=== PATIENT | female | born 1980 | race Caucasian/White ===

== ENCOUNTER 2016-08-04 21:15 | Emergency (ER) | payer MEDICARE, MEDICAID ==
[~2016-08-04] VITALS: Ht 160 cm; Wt 100.2 kg
[2016-08-04] MEDS ORDERED: ZOLO50TA PO (21:51)
[2016-08-04] MEDS ORDERED: ENAL20TA PO (21:51)
[2016-08-04] MEDS ORDERED: FLON1SPR (21:51)
[2016-08-04] MEDS ORDERED: CALCTAB75 PO (21:51)
[2016-08-04] MEDS ORDERED: MULTLIQ7 PO (21:51)
[2016-08-04] MEDS ORDERED: MEDR1VL IM (21:51)
[2016-08-04] MEDS ORDERED: OMEP40CA2 PO (21:51)
[2016-08-04] MEDS ORDERED: ALLE180T33 PO (21:51)
[2016-08-04 23:01] LABS: MEAN CORPUSCULAR HEMOGLOBIN 30.8 pg (27.0-33.0); MEAN CORPUSCULAR HGB CONC 34.5 g/dl (32.0-36.5); MEAN CORPUSCULAR VOLUME 89.5 fl (80.0-96.0); RED CELL DISTRIBUTION WIDTH 11.8 % (11.5-14.5); WHITE BLOOD COUNT 9.3 K/mm3 (4.0-10.0)
[2016-08-04 23:11] LABS: CONTROL LINE HCG INT CTR LINE PRESENT
[2016-08-04 23:20] LABS: METHADONE URINE NEGATIVE (NEGATIVE)
[2016-08-04 23:28] LABS: ALBUMIN 3.3 GM/DL (3.2-5.2); ALBUMIN/GLOBULIN RATIO 0.85 (1.00-1.93); ALKALINE PHOSPHATASE 108 U/L (45-117); ALT/SGPT 23 U/L (12-78); ANION GAP 8 MEQ/L (8-16); AST/SGOT 12 U/L (15-37); BILIRUBIN,DIRECT < 0.1 MG/DL (0.0-0.2); BILIRUBIN,TOTAL 0.2 MG/DL (0.2-1.0); BLOOD UREA NITROGEN 17 MG/DL (7-18); CALCIUM LEVEL 8.6 MG/DL (8.5-10.1); CARBON DIOXIDE LEVEL 26 MEQ/L (21-32); CHLORIDE LEVEL 104 MEQ/L (98-107); CREATININE FOR GFR 0.65 MG/DL (0.55-1.02); GLOMERULAR FILTRATION RATE > 60.0 (>60); GLUCOSE, FASTING 102 MG/DL (70-105); POTASSIUM SERUM 4.2 MEQ/L (3.5-5.1); SODIUM LEVEL 138 MEQ/L (136-145); TOTAL PROTEIN 7.2 GM/DL (6.4-8.2)
[2016-08-05 02:16] VITALS: BP 128/70
== END 2016-08-05 02:17 | disposition home or self-care (01) ==
LOC: M ED 21:59
DX: F33.9 Major depressive disorder, recurrent, unspecified (principal); F43.20 Adjustment disorder, unspecified; K21.9 Gastro-esophageal reflux disease without esophagitis; J30.9 Allergic rhinitis, unspecified; F12.20 Cannabis dependence, uncomplicated; Z79.899 Other long term (current) drug therapy
CPT/HCPCS: 36415; 80048; 80076; 80306; 84443; 84703; 85027; 99284; G0480

== ENCOUNTER → 2020-04-09 | Outpatient (REF) | payer MEDICARE, MEDICAID ==
[~2020-04-09] MED LIST: ALLE180T33 PO; CALCTAB75 PO; ENAL20TA11 PO; FLON1SPR; MEDR1VL IM; MULTLIQ7 PO; OMEP40CA97 PO; ZOLO50TA PO
[2020-04-09 14:27] LABS: BACTERIA, URINE AUTO NEGATIVE (NEGATIVE); MUCUS, URINE SMALL (NEGATIVE); RBC, URINE AUTO 0 /HPF (0-3); SQUAMOUS EPITHELIAL CELL UR AU 0 /HPF (0-6); WBC, URINE AUTO 0 /HPF (0-3)
== END ==
LOC: M SMT 13:45
PROVIDERS: ATTEND Specialist
DX: R30.0 Dysuria (principal)

== ENCOUNTER → 2020-08-08 | Outpatient (REF) | payer MEDICARE, MEDICAID ==
[~2020-08-08] MED LIST changes: +OMEP40CA4 PO; -OMEP40CA97 PO
== END ==
LOC: M SMT 13:27
PROVIDERS: ATTEND Urology
DX: R31.9 Hematuria, unspecified (principal)
CPT/HCPCS: 88108; G0463